=== PATIENT | female | born 1965 | race Two or more races ===

== ENCOUNTER 2022-12-13 11:09 | Day surgery (SDC) | payer OTHER ==
[~2022-12-13] VITALS: Ht 160 cm; Wt 71.7 kg
[2022-12-13] MEDS ORDERED: MIDAZOLAM 2 MG/2 ML VIAL ONE (11:36)
[2022-12-13] MEDS ORDERED: diphenhydrAMINE 50 MG/ML VIAL ONE (11:36)
[2022-12-13] MEDS ORDERED: fentaNYL citrate 0.05 MG/ML VIAL ONE (11:36)
[2022-12-13] MEDS ORDERED: LIDOCAINE 2% 100 MG/5 ML UJET TP ONE (11:36)
[2022-12-13] MEDS ORDERED: fentaNYL citrate 0.05 MG/ML VIAL IVP ONE (13:00)
[2022-12-13] MEDS ORDERED: MIDAZOLAM 2 MG/2 ML VIAL IVP ONE (13:00)
== END 2022-12-13 13:10 | disposition home or self-care (01) ==
LOC: MDS 11:09 → MMU 11:11 → MDS 13:10
PROVIDERS: ATTEND Internal Medicine Gastroenterology
DX: Z12.11 Encounter for screening for malignant neoplasm of colon (principal); K63.5 Polyp of colon; I10 Essential (primary) hypertension; Z79.899 Other long term (current) drug therapy
CPT/HCPCS: 45385; 88305; J2250; J3010; J1200